=== PATIENT | female | born 1970 | race Caucasian/White ===

== ENCOUNTER → 2017-01-22 | Outpatient (CLI) | payer OTHER ==
[~2017-01-22] MED LIST: AMERGE2.5 MG PO; MULTIVITAMINS1 EAC7 PO; NORCO 5-325 TA1 EACH PO; PROMS25 WY PO
--- NOTE | ~2017-01-22 | 2DMMODE ---
[facility] [address] [place] [address] 2 D/M-MODE ECHOCARDIOGRAM Name: CORTNEY TAN Room #: REG [facility]#: [id number] Admission: 01/22/17 Attend Phys: Miguel Angel Taylor Discharge: Date of : 70 Date of Service: 01/22/17 1014 Report #: [id number] THIS REPORT FOR: //name// APPROVED REPORT Study performed: 01/22/2017 09:25:28 EXAM: Comprehensive 2D, Doppler, and color-flow Echocardiogram Patient Location: Out-Patient Room #: Echo 2 Blood Pressure: 108/70 mmHg HR: 66 bpm Other Information Study Quality: Fair Indications Palpitations 2D Dimensions RVDd: 26.91 mm LVEF(%): 64.80 (>50%) IVSd: 6.17 (7-11mm) LVOT Diam: 17.26 (18-24mm) LVDd: 36.89 mm PWd: 5.59 (7-11mm) LVDs: 24.07 (25-40mm) Aortic Root: 24.04 mm IVC: 13.00 mm Nava's LVEF: 64.80 % Volumes Left Atrial Volume (Systole) Single Plane 4CH: 12.88 mL Single Plane 2CH: 6.31 mL LA ESV Index: 8.00 mL/m2 Aortic Valve AoV Peak Juan.: 0.90 m/s AO Peak Gr.: 3.21 mmHg LVOT Max P.86 mmHg LVOT Max V: 0.85 m/s KATI Vmax: 2.21 cm2 Mitral Valve E/A Ratio: 1.8 MV Decel. Time: 186.82 ms [facility] [address] [place] [address] 2 D/M-MODE ECHOCARDIOGRAM Name: CORTNEY TAN Room #: REG [facility]#: [id number] Admission: 01/22/17 Attend Phys: Miguel Angel Taylor Discharge: Date of : 70 Date of Service: 01/22/17 1014 Report #: [id number] MV E Max Juan.: 0.84 m/s MV A Juan.: 0.46 m/s MV PHT: 54.18 ms IVRT: 106.11 ms Pulmonary Vein P Vein S: 0.51 m/s P Vein A: 0.26 m/s P Vein D: 0.47 m/s P Vein A Dur.: 96.9 msec P Vein S/D Ratio: 1.09 Tricuspid Valve RAP Estimate: 5.00 mmHg Left Ventricle The left ventricle is normal size. There is normal LV segmental wall motion. There is normal left ventricular wall thickness. The left ventricular systolic function is normal. The left ventricular ejection fraction is within the normal range. LVEF is 60-65%. The left ventricular diastolic function is normal. Right Ventricle The right ventricle is normal size. The right ventricular systolic function is normal. Atria The left atrium size is normal. The right atrium size is normal. Aortic Valve The aortic valve is normal in structure. No aortic regurgitation is present. There is no aortic valvular stenosis. Mitral Valve The mitral valve is normal in structure. There is no mitral valve regurgitation noted. No evidence of mitral valve stenosis. Tricuspid Valve The tricuspid valve is normal in structure. There is no tricuspid valve regurgitation noted. Pulmonic Valve Pulmonic valve is not well visualized. There is no pulmonic valvular regurgitation. Great Vessels The aortic root is normal in size. IVC is normal in size and [facility] [address] [place] [address] 2 D/M-MODE ECHOCARDIOGRAM Name: CORTNEY TAN [id number] Admission: 01/22/17 Attend Phys: Miguel Angel Taylor Discharge: Date of : 70 Date of Service: 01/22/17 1014 Report #: [id number] collapses >50% with inspiration. Pericardium There is no pericardial effusion. <Conclusion> The left ventricle is normal size. LVEF is 60-65%. The aortic valve is normal in structure. The mitral valve is normal in structure. The aortic root is normal in size. <ELECTRONICALLY SIGNED> By: Miguel Angel Machado MD 01/22/174 1014 101 Miguel Angel Machado MD /INF
== END ==
LOC: CV 01-21 08:24
DX: R00.2 Palpitations (principal)